=== PATIENT | female | born 1975 | race Caucasian/White ===

== ENCOUNTER 2023-01-13 21:14 | Emergency (ER) | payer OTHER, SELFPAY ==
[2023-01-13 21:21] VITALS: BP 123/76; PULSE 120; RESP 22; TEMP 38.7; O2SAT 97; BMI 30.2
--- NOTE | 2023-01-13 21:34 | PC.NURSE ---
asked to wear a mask correctly while in rm with pt
--- NOTE | 2023-01-13 21:41 | ED_ITS ---
HPI - Fever General Chief Complaint: Fever Stated Complaint: FEVER Time Seen by Provider: 01/13/23 21:38 Source: patient Mode of arrival: Wheelchair History of Present Illness HPI Narrative: ill today with sore throat and cough. Seen at urgent care this AM and prescribed antibiotic. Still not feeling well and states her fever increased. Has GAO, body aches, cough and sore throat. Not short of breath. dry cough MD elicited complaint: Reports fever and malaise Related Data Home Medications Medication Instructions Recorded Confirmed amoxicillin 875 mg-potassium 1 tab PO BID 01/13/23 01/13/23 clavulanate 125 mg tablet Allergies Allergy/AdvReac Type Severity Reaction Status Date / Time No Known Drug Allergies Allergy Verified 01/13/23 21:21 Review of Systems ROS Status of ROS 10 or more systems reviewed and unremarkable except as noted in history and below Constitutional Reports: fever Ears, nose, mouth, and throat Reports: throat pain Respiratory Reports: cough Exam Constitutional Vital Signs, click to edit/add: Last Vital Signs Temp 101.6 F H 01/13/23 21:21 Pulse 120 H 01/13/23 21:21 Resp 22 01/13/23 21:21 BP 123/76 01/13/23 21:21 Pulse Ox 97 01/13/23 21:21 O2 Del Method Room Air 01/13/23 21:34 Common normals: average body habitus, oriented x3, alert and well nourished [facility] Other: oral pharynx erythematous. no exudate Eye Common normals: EOMs intact bilaterally, conjunctivae normal and no scleral ic terus Respiratory Common normals: normal respiratory effort, no retractions and no use of accessory muscles Cardio Common normals: regular rate, regular rhythm, S1 normal heart sound and S2 normal heart sound GI Common normals: Normal to inspection, nondistended, normoactive bowel sounds present, soft to palpation and non-tender Extremity Common normals: normal to inspection, full ROM and normal capillary refill Neuro Common normals: oriented x3, CN's II-XII intact bilaterally, moves all extremities, no focal motor deficits and no sensory deficits noted Psych Appearance: grossly normal Course Vital Signs Vital signs: Vital Signs Temperature 101.6 F H 01/13/23 21:21 Pulse Rate 120 H 01/13/23 21:21 Respiratory Rate 22 01/13/23 21:21 Blood Pressure 123/76 01/13/23 21:21 Pulse Oximetry 97 01/13/23 21:21 Oxygen Delivery Method Room Air 01/13/23 21:21 Temperature 101.6 F H 01/13/23 21:21 Pulse Rate 120 H 01/13/23 21:21 Respiratory Rate 22 01/13/23 21:21 Blood Pressure 123/76 01/13/23 21:21 Pulse Oximetry 97 01/13/23 21:21 Oxygen Delivery Method Room Air 01/13/23 21:34 MDM - Fever MDM Narrative Medical decision making narrative: patient presents with one day history of body aches, sore throat, cough and gen. weakness and fever. No respiratory distress but does appear ill. workup remarkable for COVID. labs WNL and cxray clear. Patient given Paxlovid and discharged home. Advised she can discontinue augmentin prescribed earlier today at urgent care Lab Data Labs: Lab Results 01/13/23 01/13/23 Range/Units 21:28 22:00 WBC 6.0 (4.0-11.0) 10^3/uL RBC 4.42 (4.20-5.40) 10^6/uL Hgb 12.7 (12.0-16.0) g/dL Hct 38.7 (36.0-48.0) % MCV 87.6 (81.0-99.0) fL MCH 28.7 (26.7-34.0) pg MCHC 32.8 (29.9-35.2) g/dL RDW 12.4 (11.0-15.0) % Plt Count 263 (150-450) 10^3/uL MPV 9.5 (9.5-13.5) fL Neut % (Auto) 74.0 (43.0-75.0) % Lymph % (Auto) 12.5 L (20.5-60.0) % [place] % (Auto) 9.4 (1.7-12.0) % Eos % (Auto) 2.7 (0.9-7.0) % Baso % (Auto) 0.7 (0.2-2.0) % Neut # (Auto) 4.4 (1.4-6.5) 10^3/uL Lymph # (Auto) 0.8 L (1.2-3.8) 10^3/uL [place] # (Auto) 0.6 (0.3-0.8) 10^3/uL Eos # (Auto) 0.2 (0.0-0.7) 10^3/uL Baso # (Auto) 0.0 (0.0-0.1) 10^3/uL Abs Immat Gran (auto) 0.04 H (0.00-0.03) 10^3/uL Imm/Tot Granulo (auto) 0.7 H (0.0-0.5) % Sodium 139 (136-145) mmol/L Potassium 3.5 (3.5-5.1) mmol/L Chloride 105 (98-107) mmol/L Carbon Dioxide 26.0 (21.0-32.0) mmol/L Anion Gap 11.5 BUN 15.0 (7.0-18.0) mg/dL Creatinine 0.83 (0.55-1.02) mg/dL Est GFR ( Amer) >60 (>=60) Est GFR (Non-Af Amer) >60 (>=60) BUN/Creatinine Ratio 18.1 Glucose 102 (74-106) mg/dL Calcium 8.6 (8.5-10.1) mg/dL SARS-CoV-2 (PCR) Positive A (NEGATIVE) Streptococcus Screen Negative Discharge Plan Discharge Chief Complaint: Fever Clinical Impression: COVID-19 Patient Disposition: Home, Self-Care Prescriptions / Home Meds: No Action amoxicillin-pot clavulanate 875-125 mg tablet 1 tab PO BID Instructions: Face Coverings (Masks) and COVID-19 (ED) Additional Instructions: quarantine at home for the next week Stand Alone Forms: Portal Instructions Referrals: ALYSHA PATEL [Primary Care Provider] - 1 week
[2023-01-13 21:46] LABS: Internal Control Within Normal Limits; Strep A Antigen Screen Negative
--- NOTE | 2023-01-13 21:48 | XR_ITS ---
The [address] [address] Patient Name: KRISTEN LANG MRN: [id number] date: 1975 Sex: F Assigned Patient Location: ED.MAIN Current Patient Location: ER Accession/Order Number: [id number] Exam Date: 01/13/2023 22:07 Report Date: 01/13/2023 23:01 At the request of: TERESITA ROSENBERG Procedure: XR chest 1V EXAM: XR chest 1V HISTORY: cough COMPARISON: None. TECHNIQUE: AP portable study FINDINGS: The cardiovascular silhouette is normal. Lung hsu are well-expanded and clear. Pleural spaces are clear. The bony structures are unremarkable. XR/XR chest 1V IMPRESSION: No evidence for acute cardiopulmonary disease. Electronically authenticated by: Violetta CHNIO Date: 01/13/2023 23:01
[2023-01-13 21:52] LABS: SARS-CoV-2 Ag POSITIVE (NEGATIVE)
[2023-01-13] MEDS: IBUPROFEN 600 MG TABLET PO (22:03)
[2023-01-13 22:08] LABS: Basophils Percent Auto 0.7 % (0.2-2.0); Eosinophils Absolute Auto 0.2 10^3/uL (0.0-0.7); Eosinophils Percent Auto 2.7 % (0.9-7.0); Hematocrit 38.7 % (36.0-48.0); Hemoglobin 12.7 g/dL (12.0-16.0); Immature Granulocytes Abs Auto 0.04 10^3/uL (0.00-0.03); Immature Granulocytes Pct Auto 0.7 % (0.0-0.5); Lymphocytes Absolute Auto 0.8 10^3/uL (1.2-3.8); Lymphocytes Percent Auto 12.5 % (20.5-60.0); Mean Corpuscular HGB Conc 32.8 g/dL (29.9-35.2); Mean Corpuscular Hemoglobin 28.7 pg (26.7-34.0); Mean Corpuscular Volume 87.6 fL (81.0-99.0); Mean Platelet Volume 9.5 fL (9.5-13.5); Monocytes Absolute Auto 0.6 10^3/uL (0.3-0.8); Monocytes Percent Auto 9.4 % (1.7-12.0); Neutrophils Absolute Auto 4.4 10^3/uL (1.4-6.5); Platelet Count 263 10^3/uL (150-450); Red Blood Count 4.42 10^6/uL (4.20-5.40); Red Cell Distribution Width 12.4 % (11.0-15.0)
[2023-01-13 22:19] LABS: Anion Gap 11.5; BUN Creatinine Ratio 18.1; Calcium 8.6 mg/dL (8.5-10.1); Chloride 105 mmol/L (98-107); Estimated GFR (African America >60 (>=60); Estimated GFR (Non-African Ame >60 (>=60); Glucose 102 mg/dL (74-106); Potassium 3.5 mmol/L (3.5-5.1); Sodium 139 mmol/L (136-145)
[2023-01-13 23:16] VITALS: PULSE 110; RESP 18; TEMP 37.9
== END 2023-01-13 23:37 | disposition home or self-care (01) ==
PROVIDERS: Emergency Provider Internal Medicine; PCP Internal Medicine
DX: U07.1 COVID-19 (principal); R50.9 Fever, unspecified
CPT/HCPCS: 36415; 71045; 80048; 85025; 87070; 87635; 87811; 87880; 99285